=== PATIENT | male | born 1990 | race Caucasian/White ===

== ENCOUNTER 2016-04-03 02:03 | Emergency (ER) | payer OTHER ==
--- NOTE | 2016-04-03 03:29 | EDDOCDS ---
Physician Documentation [facility] Name: Raphael Josue Age: 26 yrs Sex: Male : 1990 Arrival Date: 04/03/2016 Time: 02:03 Bed 12 Private MD: LIBRA Busby Disposition: 04/03/16 03:02 Discharged to Home/Self Care. Impression: Alcohol abuse with intoxication. - Condition is Stable. - Medication Reconciliation, Local Pharmacy Hours form. - Follow up: LIBRA Busby; When: Call to arrange an appointment; Reason: Recheck today's complaints. - Problem is new. - Symptoms have improved. Historical: - Allergies: no known allergies; - Home Meds: 1. none - PMHx: none; - PSHx: wisdom teeth removal; - Social history: Smoking status: Patient states was never smoker of tobacco. No barriers to communication noted, The patient speaks fluent Montenegrin. - Family history: Not pertinent. - : The pt / caregiver states he / she is not on anticoagulants. Note patient not on any meds. - Exposure Risk Screening:: None identified. Vital Signs: 04/03 02:17 BP 138 / 91; Pulse 71; Resp 20; Temp 97.3(O); Pulse Ox 100% on R/A; Weight 81.65 kg / jmv 180.01 lbs (R); Height 5 ft. 7 in. (170.18 cm) (R); Pain 0/10; 02:31 BP 146 / 75 RA Sitting; Pulse 71; af2 02:31 BP 153 / 83 RA Sitting; Pulse 78; af2 02:31 BP 137 / 78 LA Sitting; Pulse 77; af2 03:27 BP 128 / 72; Pulse 75; Resp 18; Temp 98.0(O); Pulse Ox 99% on R/A; Pain 0/10; kas2 02:17 Body Mass Index 28.19 (81.65 kg, 170.18 cm) jmv MDM: 02:06 Accucheck ordered. cs11 02:06 Orthostatic VS ordered. cs11 02:07 Alcohol Ordered. EDMS 02:49 Financial registration complete. hs2 02:54 [facility] Payment Agreement was scanned into [employer] and attached to record. hs2 03:00 Alcohol Reviewed. cs11 Signatures: Dispatcher [employer] EDMS Joel, Andrea, DO DO cs11 Mirna oJhnson, Reg Reg hs2 Beatriz Gayle,RN RN kas2 The chart was reviewed and I authenticate all verbal orders and agree with the evaluation and treatment provided.Attachments: 02:54 [facility] Payment Agreement hs2 MTDD
--- NOTE | 2016-04-03 03:29 | EDDOCDS ---
Nurse's Notes [facility] Name: Raphael Josue Age: 26 yrs Sex: Male : 1990 Arrival Date: 04/03/2016 Time: 02:03 Bed 12 Private MD: LIBRA Busby Diagnosis: Alcohol abuse with intoxication Presentation: 04/03 02:06 Presenting complaint: EMS states: patient had a few cranberry and vodka drinks and kas2 burger gabino and started feeling dizzy. EMS called from desk on post. No LOC. No chest pain. FSBS 106 mg/dL. Adult Sepsis Screening: The patient does not have new or worsening altered mentation. Patient's respiratory rate is less than 22. Systolic blood pressure is greater than 100. Patient has a qSOFA score of 0- Negative Sepsis Screen. Suicide/Homicide risk assessment- the patient denies having any suicidal and/or homicidal ideations and does not present with any other emotional, behavioral or mental health complaints. Status: The patient is an active duty tire service technician. Transition of care: patient was not received from another setting of care. 02:06 Acuity: ROSA MARIA Level 4 kas2 02:06 Method Of Arrival: Ambulance [facility] Triage Assessment: 02:09 General: Appears in no apparent distress, comfortable, well nourished, well groomed, kas2 Behavior is appropriate for age, cooperative. Pain: Denies pain. Pt Declines HIV testing. Neurological: Level of Consciousness is awake, alert, Oriented to person, place, time. Cardiovascular: Rhythm is regular. Respiratory: Airway is patent Respiratory effort is even, unlabored, Respiratory pattern is regular, symmetrical. Derm: Skin is intact, Skin is dry, Skin is pink, warm & dry. Skin temperature is warm. Injury Description: No known injury. Historical: - Allergies: no known allergies; - Home Meds: 1. none - PMHx: none; - PSHx: wisdom teeth removal; - Social history: Smoking status: Patient states was never smoker of tobacco. No barriers to communication noted, The patient speaks fluent Martiniquais. - Family history: Not pertinent. - : The pt / caregiver states he / she is not on anticoagulants. Note patient not on any meds. - Exposure Risk Screening:: None identified. Screenin:31 Screening information is obtained from the patient. Fall risk: No risks identified. af2 Assistance ADL's: requires no assistance with activities of daily living. Abuse/DV Screen: The patient / caregiver reports he/she is: not in a situation that causes fear, pain or injury. Nutritional screening: No deficits noted. Advance Directives: Currently, there is no health care proxy. home support is adequate. Assessment: 02:10 General: See triage note.. kas2 03:15 General: Appears in no apparent distress, comfortable, well nourished, well groomed, kas2 Behavior is appropriate for age, cooperative. Pain: Denies pain. Neurological: Level of Consciousness is awake, alert, Oriented to person, place, time. Cardiovascular: Rhythm is regular. Respiratory: Airway is patent Respiratory effort is even, unlabored, Respiratory pattern is regular, symmetrical. Derm: Skin is intact, Skin is dry, Skin is pink, warm & dry. Skin temperature is warm. Vital Signs: 02:17 BP 138 / 91; Pulse 71; Resp 20; Temp 97.3(O); Pulse Ox 100% on R/A; Weight 81.65 kg [facility] (R); Height 5 ft. 7 in. (170.18 cm) (R); Pain 0/10; 02:31 BP 146 / 75 RA Sitting; Pulse 71; af2 02:31 BP 153 / 83 RA Sitting; Pulse 78; af2 02:31 BP 137 / 78 LA Sitting; Pulse 77; af2 03:27 BP 128 / 72; Pulse 75; Resp 18; Temp 98.0(O); Pulse Ox 99% on R/A; Pain 0/10; kas2 02:17 Body Mass Index 28.19 (81.65 kg, 170.18 cm) [facility] Vitals: 02:09 Log In Time N/A - ambulance arrival. [facility] ED Course: 02:05 Josefina Navarro,YUE is Primary Nurse. jlm 02:05 Patient visited by Aylin Burgos, Food Safety Field Specialist. jlm 02:05 Andrea Maldonado DO is Attending Physician. cs11 02:05 Patient visited by Andrea Maldonado DO. cs11 02:05 LIBRA Busby is Private Physician. jlm 02:05 Patient moved to 12 [facility] 02:08 Triage Initiated [facility] 02:11 Patient visited by Beatriz Gayle RN. [facility] 02:19 Pt greeted and oriented to ED. Patient advised of names of staff involved in care, jmchelsey location of call mercedes, wait times and NPO status. Patient has correct armband on for positive identification. Placed in gown. Bed in low position. Call light in reach. Side rails up X 1. 02:20 Patient visited by Chris Chapman PCA. jmv 02:31 The patient / caregiver is instructed regarding the plan of care and ED course. af2 02:31 No IV's were initiated during this patient's visit. No procedures done that require af2 assistance. Labs drawn. (by ED staff). Sent per order to lab. 02:32 Patient visited by Josefina Navarro RN. af2 02:54 [facility] Payment Agreement was scanned into [employer] and attached to record. hs2 03:00 Patient name changed from Edward\S\\S\Josue\S\ to Edward\S\Christopher\S\Josue. EDMS 03:01 Qi [facility] is Referral Physician. cs11 Order Results: Lab Order: Alcohol; SPEC'M 04/03/16 02:23 Test: ETHYL ALCOHOL (ETHANOL); Value: 0.173; Range: 0.000-0.010; Abnormal: Above high normal; Units: %; Status: F Outcome: 03:02 Discharge ordered by Provider. 11 03:28 Discharge Assessment: patient administered narcotics - no. The following High Risk [facility] Discharge criteria are identified: None. Discharged to home ambulatory, with friend. Condition: good Condition: stable. No special radiology studies were completed. Property :Personal belongings accompany Pt. 03:28 Patient left the ED. [facility] Signatures: Dispatcher [employer] EDMS Andrea Maldonado, DO DO cs11 Aylin Burgos, Food Safety Field Specialist Unit jlm Josefina Navarro,RN RN af2 Mirna Johnson, Reg Reg hs2 Beatriz Gayle RN RN [facility] Chris Chapman PCA PCA jmv MTDD
--- NOTE | 2016-04-05 04:29 | EDDOCDS ---
Physician Documentation [facility] Name: Raphael Josue Age: 26 yrs Sex: Male : 1990 Arrival Date: 04/03/2016 Time: 02:03 Bed 12 Private MD: LIBRA Busby Disposition: 04/03/16 03:02 Discharged to Home/Self Care. Impression: Alcohol abuse with intoxication. - Condition is Stable. - Medication Reconciliation, Local Pharmacy Hours form. - Follow up: LIBRA Busby; When: Call to arrange an appointment; Reason: Recheck today's complaints. - Problem is new. - Symptoms have improved. Historical: - Allergies: no known allergies; - Home Meds: 1. none - PMHx: none; - PSHx: wisdom teeth removal; - Social history: Smoking status: Patient states was never smoker of tobacco. No barriers to communication noted, The patient speaks fluent Bolivian. - Family history: Not pertinent. - : The pt / caregiver states he / she is not on anticoagulants. Note patient not on any meds. - Exposure Risk Screening:: None identified. Vital Signs: 04/03 02:17 BP 138 / 91; Pulse 71; Resp 20; Temp 97.3(O); Pulse Ox 100% on R/A; Weight 81.65 kg / jmv 180.01 lbs (R); Height 5 ft. 7 in. (170.18 cm) (R); Pain 0/10; 02:31 BP 146 / 75 RA Sitting; Pulse 71; af2 02:31 BP 153 / 83 RA Sitting; Pulse 78; af2 02:31 BP 137 / 78 LA Sitting; Pulse 77; af2 03:27 BP 128 / 72; Pulse 75; Resp 18; Temp 98.0(O); Pulse Ox 99% on R/A; Pain 0/10; kas2 02:17 Body Mass Index 28.19 (81.65 kg, 170.18 cm) jmv MDM: 02:06 Accucheck ordered. cs11 02:06 Orthostatic VS ordered. cs11 02:07 Alcohol Ordered. EDMS 02:49 Financial registration complete. hs2 02:54 [facility] Payment Agreement was scanned into [employer] and attached to record. hs2 03:00 Alcohol Reviewed. cs11 08:53 T-Sheet-- Draft Copy was scanned into [employer] and attached to record. [facility] 10:58 PCR was scanned into [employer] and attached to record. gb Signatures: Dispatcher [employer] EDMS Radha Rm, Reg Reg gb Andrea Maldonado, DO cs11 Mirna Johnson, Reg Reg hs2 Beatriz Gayle,YUE RN [facility] Jeannette Quintanilla [facility] The chart was reviewed and I authenticate all verbal orders and agree with the evaluation and treatment provided.Attachments: 02:54 [facility] Payment Agreement hs2 08:53 T-Sheet-- Draft Copy [facility] Chart Complete MTDD
--- NOTE | 2016-04-05 04:29 | EDDOCDS ---
Physician Documentation [facility] Name: Raphael Josue Age: 26 yrs Sex: Male : 1990 Arrival Date: 04/03/2016 Time: 02:03 Bed 12 Private MD: LIBRA Busby Disposition: 04/03/16 03:02 Discharged to Home/Self Care. Impression: Alcohol abuse with intoxication. - Condition is Stable. - Medication Reconciliation, Local Pharmacy Hours form. - Follow up: LIBRA Busby; When: Call to arrange an appointment; Reason: Recheck today's complaints. - Problem is new. - Symptoms have improved. Historical: - Allergies: no known allergies; - Home Meds: 1. none - PMHx: none; - PSHx: wisdom teeth removal; - Social history: Smoking status: Patient states was never smoker of tobacco. No barriers to communication noted, The patient speaks fluent Namibian. - Family history: Not pertinent. - : The pt / caregiver states he / she is not on anticoagulants. Note patient not on any meds. - Exposure Risk Screening:: None identified. Vital Signs: 04/03 02:17 BP 138 / 91; Pulse 71; Resp 20; Temp 97.3(O); Pulse Ox 100% on R/A; Weight 81.65 kg / jmv 180.01 lbs (R); Height 5 ft. 7 in. (170.18 cm) (R); Pain 0/10; 02:31 BP 146 / 75 RA Sitting; Pulse 71; af2 02:31 BP 153 / 83 RA Sitting; Pulse 78; af2 02:31 BP 137 / 78 LA Sitting; Pulse 77; af2 03:27 BP 128 / 72; Pulse 75; Resp 18; Temp 98.0(O); Pulse Ox 99% on R/A; Pain 0/10; kas2 02:17 Body Mass Index 28.19 (81.65 kg, 170.18 cm) jmv MDM: 02:06 Accucheck ordered. cs11 02:06 Orthostatic VS ordered. cs11 02:07 Alcohol Ordered. EDMS 02:49 Financial registration complete. hs2 02:54 [facility] Payment Agreement was scanned into [employer] and attached to record. hs2 03:00 Alcohol Reviewed. cs11 08:53 T-Sheet-- Draft Copy was scanned into [employer] and attached to record. [facility] 10:58 PCR was scanned into [employer] and attached to record. gb Signatures: Dispatcher [employer] EDMS Radha Rm, Reg Reg gb Andrea Maldonado, DO cs11 Mirna Johnson, Reg Reg hs2 Beatriz Gayle,YUE RN [facility] Jeannette Quintanilla [facility] The chart was reviewed and I authenticate all verbal orders and agree with the evaluation and treatment provided.Attachments: 02:54 [facility] Payment Agreement hs2 08:53 T-Sheet-- Draft Copy [facility] Chart Complete MTDD
--- NOTE | 2016-04-05 04:29 | EDDOCDS ---
Nurse's Notes [facility] Name: Raphael Josue Age: 26 yrs Sex: Male : 1990 Arrival Date: 04/03/2016 Time: 02:03 Bed 12 Private MD: LIBRA Busby Diagnosis: Alcohol abuse with intoxication Presentation: 04/03 02:06 Presenting complaint: EMS states: patient had a few cranberry and vodka drinks and kas2 burger gabino and started feeling dizzy. EMS called from desk on post. No LOC. No chest pain. FSBS 106 mg/dL. Adult Sepsis Screening: The patient does not have new or worsening altered mentation. Patient's respiratory rate is less than 22. Systolic blood pressure is greater than 100. Patient has a qSOFA score of 0- Negative Sepsis Screen. Suicide/Homicide risk assessment- the patient denies having any suicidal and/or homicidal ideations and does not present with any other emotional, behavioral or mental health complaints. Status: The patient is an active duty customer service security officer. Transition of care: patient was not received from another setting of care. 02:06 Acuity: ROSA MARIA Level 4 kas2 02:06 Method Of Arrival: Ambulance [facility] Triage Assessment: 02:09 General: Appears in no apparent distress, comfortable, well nourished, well groomed, kas2 Behavior is appropriate for age, cooperative. Pain: Denies pain. Pt Declines HIV testing. Neurological: Level of Consciousness is awake, alert, Oriented to person, place, time. Cardiovascular: Rhythm is regular. Respiratory: Airway is patent Respiratory effort is even, unlabored, Respiratory pattern is regular, symmetrical. Derm: Skin is intact, Skin is dry, Skin is pink, warm & dry. Skin temperature is warm. Injury Description: No known injury. Historical: - Allergies: no known allergies; - Home Meds: 1. none - PMHx: none; - PSHx: wisdom teeth removal; - Social history: Smoking status: Patient states was never smoker of tobacco. No barriers to communication noted, The patient speaks fluent Scottish. - Family history: Not pertinent. - : The pt / caregiver states he / she is not on anticoagulants. Note patient not on any meds. - Exposure Risk Screening:: None identified. Screenin:31 Screening information is obtained from the patient. Fall risk: No risks identified. af2 Assistance ADL's: requires no assistance with activities of daily living. Abuse/DV Screen: The patient / caregiver reports he/she is: not in a situation that causes fear, pain or injury. Nutritional screening: No deficits noted. Advance Directives: Currently, there is no health care proxy. home support is adequate. Assessment: 02:10 General: See triage note.. kas2 03:15 General: Appears in no apparent distress, comfortable, well nourished, well groomed, kas2 Behavior is appropriate for age, cooperative. Pain: Denies pain. Neurological: Level of Consciousness is awake, alert, Oriented to person, place, time. Cardiovascular: Rhythm is regular. Respiratory: Airway is patent Respiratory effort is even, unlabored, Respiratory pattern is regular, symmetrical. Derm: Skin is intact, Skin is dry, Skin is pink, warm & dry. Skin temperature is warm. Vital Signs: 02:17 BP 138 / 91; Pulse 71; Resp 20; Temp 97.3(O); Pulse Ox 100% on R/A; Weight 81.65 kg [facility] (R); Height 5 ft. 7 in. (170.18 cm) (R); Pain 0/10; 02:31 BP 146 / 75 RA Sitting; Pulse 71; af2 02:31 BP 153 / 83 RA Sitting; Pulse 78; af2 02:31 BP 137 / 78 LA Sitting; Pulse 77; af2 03:27 BP 128 / 72; Pulse 75; Resp 18; Temp 98.0(O); Pulse Ox 99% on R/A; Pain 0/10; kas2 02:17 Body Mass Index 28.19 (81.65 kg, 170.18 cm) [facility] Vitals: 02:09 Log In Time N/A - ambulance arrival. [facility] ED Course: 02:05 Josefina Navarro,YUE is Primary Nurse. jlm 02:05 Patient visited by Aylin Burgos, Retail Wireless Associate. jlm 02:05 Andrea Maldonado DO is Attending Physician. cs11 02:05 Patient visited by Andrea Maldonado DO. cs11 02:05 LIBRA Busby is Private Physician. jlm 02:05 Patient moved to 12 [facility] 02:08 Triage Initiated [facility] 02:11 Patient visited by Beatriz Gayle RN. [facility] 02:19 Pt greeted and oriented to ED. Patient advised of names of staff involved in care, jmchelsey location of call mercedes, wait times and NPO status. Patient has correct armband on for positive identification. Placed in gown. Bed in low position. Call light in reach. Side rails up X 1. 02:20 Patient visited by Chris Chapman PCA. jmv 02:31 The patient / caregiver is instructed regarding the plan of care and ED course. af2 02:31 No IV's were initiated during this patient's visit. No procedures done that require af2 assistance. Labs drawn. (by ED staff). Sent per order to lab. 02:32 Patient visited by Josefina Navarro RN. af2 02:54 [facility] Payment Agreement was scanned into [employer] and attached to record. hs2 03:00 Patient name changed from Edward\S\\S\Josue\S\ to Edward\S\Christopher\S\Josue. EDMS 03:01 Qi [facility] is Referral Physician. cs11 08:53 T-Sheet-- Draft Copy was scanned into [employer] and attached to record. [facility] 10:58 PCR was scanned into [employer] and attached to record. gb Order Results: Lab Order: Alcohol; SPEC'M 04/03/16 02:23 Test: ETHYL ALCOHOL (ETHANOL); Value: 0.173; Range: 0.000-0.010; Abnormal: Above high normal; Units: %; Status: F Outcome: 03:02 Discharge ordered by Provider. cs11 03:28 Discharge Assessment: patient administered narcotics - no. The following High Risk [facility] Discharge criteria are identified: None. Discharged to home ambulatory, with friend. Condition: good Condition: stable. No special radiology studies were completed. Property :Personal belongings accompany Pt. 03:28 Patient left the ED. [facility] Signatures: Dispatcher [employer] EDMS Radha Rm, Reg Reg gb Andrea Maldonado DO DO cs11 Aylin Burgos, Retail Wireless Associate Unit jlm Josefina Navarro,RN RN af2 Mirna Johnson, Reg Reg hs2 Beatriz Gayle RN RN kas2 Jeannette Quintanilla [facility] Chris Chapman PCA PCA [facility] Chart Complete MTDD
== END 2016-04-03 03:28 | disposition home or self-care (01) ==
LOC: M ED 02:03
DX: F10.129 Alcohol abuse with intoxication, unspecified (principal)
CPT/HCPCS: 36415; 99283; G0480

== ENCOUNTER 2017-07-25 12:56 | Inpatient (IN) | payer OTHER ==
[2017-07-25 18:45] LABS: HEMATOCRIT 47.5 % (42.0-52.0); HEMOGLOBIN 16.1 g/dl (13.5-17.5); MEAN CORPUSCULAR HEMOGLOBIN 29.3 pg (27.0-33.0); MEAN CORPUSCULAR HGB CONC 33.9 g/dl (32.0-36.5); MEAN CORPUSCULAR VOLUME 86.5 fl (80.0-96.0); PLATELET COUNT, AUTOMATED 199 10^3/uL (150-450); RED BLOOD COUNT 5.49 10^6/uL (4.30-6.10); RED CELL DISTRIBUTION WIDTH 12.2 % (11.5-14.5); WHITE BLOOD COUNT 5.5 10^3/uL (4.0-10.0)
[2017-07-25 19:11] LABS: AMPHETAMINES LEVEL URINE NEGATIVE (NEGATIVE); BARBITURATES URINE NEGATIVE (NEGATIVE); BENZODIAZEPINES URINE NEGATIVE (NEGATIVE); CANNABINOIDS URINE NEGATIVE (NEGATIVE); COCAINE METABOLITE URINE NEGATIVE (NEGATIVE); METHADONE URINE NEGATIVE (NEGATIVE); OPIATES URINE NEGATIVE (NEGATIVE); PHENCYCLIDINE URINE NEGATIVE (NEGATIVE)
[2017-07-25 20:03] LABS: ALBUMIN 4.8 GM/DL (3.2-5.2); ALBUMIN/GLOBULIN RATIO 1.45 (1.00-1.93); ALKALINE PHOSPHATASE 71 U/L (45-117); ALT/SGPT 22 U/L (12-78); ANION GAP 8 MEQ/L (8-16); AST/SGOT 24 U/L (7-37); BILIRUBIN,DIRECT 0.1 MG/DL (0.0-0.2); BILIRUBIN,TOTAL 0.5 MG/DL (0.2-1.0); BLOOD UREA NITROGEN 12 MG/DL (7-18); CALCIUM LEVEL 9.3 MG/DL (8.5-10.1); CARBON DIOXIDE LEVEL 29 MEQ/L (21-32); CHLORIDE LEVEL 104 MEQ/L (98-107); CREATININE FOR GFR 0.94 MG/DL (0.70-1.30); ETHYL ALCOHOL (ETHANOL) < 0.003 % (0.000-0.010); GLOMERULAR FILTRATION RATE > 60.0 (>60); GLUCOSE, FASTING 90 MG/DL (70-100); POTASSIUM SERUM 4.2 MEQ/L (3.5-5.1); SALICYLATE LEVEL < 1.7 MG/DL (5.0-30.0); SODIUM LEVEL 141 MEQ/L (136-145); TOTAL PROTEIN 8.1 GM/DL (6.4-8.2)
[2017-07-25 20:05] LABS: ACETAMINOPHEN LEVEL < 2.0 UG/ML (10.0-30.0)
[2017-07-25] MEDS ORDERED: MAALOX 30 ML SUSP *UDC PO (23:45)
[2017-07-25] MEDS ORDERED: traZODone 50 MG TAB PO (23:45)
[2017-07-25] MEDS ORDERED: LORazepam 1 MG TAB PO (23:45)
[2017-07-25] MEDS ORDERED: ACETAMINOPHEN TAB 650MG DOSE (2X325MG) PO (23:45)
[2017-07-25] MEDS ORDERED: MOM 30ML SUSPENSION UDC PO (23:45)
== END 2017-07-27 11:44 | disposition home or self-care (01) | DRG 880 ==
LOC: M ED 12:56 → M ED INP 21:37 → M PSY 22:39
DX: F41.9 Anxiety disorder, unspecified (principal)